=== PATIENT | male | born 1995 | race American Indian/Alaskan Native ===

== ENCOUNTER 2017-05-22 10:04 | Emergency (ER) | payer SELFPAY ==
[2017-05-22 10:41] VITALS: BP 125/62
[2017-05-22 11:13] LABS: Basophils # (Auto) 0.1 K/mm3 (0.0-0.1); Basophils % (Auto) 1.4 % (0.0-1.8); Eosinophils # (Auto) 0.1 K/mm3 (0.0-0.4); Eosinophils % (Auto) 2.1 % (0.0-4.3); Hematocrit 44.5 % (35.5-45.6); Hemoglobin 14.7 gm/dl (11.8-15.2); Lymphocytes % (Auto) 22.3 % (13.4-35.0); Mean Corpuscular HGB Conc 33 % (32-34); Mean Corpuscular Hemoglobin 28 pg (28-32); Mean Corpuscular Volume 83 fl (84-94); Monocytes # (Auto) 0.4 K/mm3 (0.0-0.8); Monocytes % (Auto) 9.9 % (0.0-7.3); Platelet Count 295 K/mm3 (140-440); Red Blood Count 5.35 M/mm3 (3.65-5.03); Red Cell Distribution Width 13.3 % (13.2-15.2)
[2017-05-22 11:22] LABS: Alanine Aminotransferase 12 units/L (7-56); Albumin 4.5 g/dL (3.9-5); BUN/Creatinine Ratio 18; Blood Urea Nitrogen 16 mg/dL (9-20); Calcium 9.4 mg/dL (8.4-10.2); Hemolysis Index 9
--- NOTE | 2017-05-22 13:07 | XRay Report ---
ABDOMINAL SERIES: History: Abdominal pain. Erect chest film shows no acute or significant changes involving the heart or lung aden. There is no evidence of free air beneath the diaphragms. The gas pattern within the abdomen is unremarkable. There is no evidence of bowel dilatation, significant air-fluid levels, or masses. Organ shadows are unremarkable. IMPRESSION: Abdominal series within normal limits.
--- NOTE | 2017-05-22 13:43 | Emergency Department Report ---
ED Abdominal Pain HPI - General Chief Complaint: Abdominal Pain Stated Complaint: ABD PAIN Time Seen by Provider: 05/22/17 12:38 Source: patient Mode of arrival: Ambulatory Limitations: No Limitations - History of Present Illness Initial Comments: This is a 21-year-old male initially screened by Dr. Corea. Patient presents stating that he has not a bowel movement in 2 days. Patient states that he had some tapering yesterday eats regularly. He denies nausea, vomiting, diarrhea, abdominal pain, fever. States he normally have a bowel movement on a daily basis. - Related Data Previous Rx's Medication Instructions Recorded Last Taken Type Docusate Sodium [Colace] 100 mg PO BID PRN #20 capsule 05/22/17 Unknown Rx Ondansetron [Zofran Odt] 4 mg PO Q8H #10 tab.rapdis 05/22/17 Unknown Rx Allergies Allergy/AdvReac Type Severity Reaction Status Date / Time No Known Allergies Allergy Unverified 05/22/17 10:38 ED Review of Systems ROS: Stated complaint: ABD PAIN Other details as noted in HPI Constitutional: denies: chills, fever Eyes: denies: eye pain, eye discharge, vision change ENT: denies: ear pain, throat pain Respiratory: denies: cough, shortness of breath, wheezing Cardiovascular: denies: chest pain, palpitations Endocrine: no symptoms reported Gastrointestinal: denies: abdominal pain, nausea, diarrhea Genitourinary: denies: urgency, dysuria Musculoskeletal: denies: back pain, joint swelling, arthralgia Skin: denies: rash, lesions Neurological: denies: headache, weakness, paresthesias Psychiatric: denies: anxiety, depression Hematological/Lymphatic: denies: easy bleeding, easy bruising ED Past Medical Hx - Past Medical History Previous Medical History?: No - Surgical History Additional Surgical History: ingrown toenail - Social History Smoking Status: Never Smoker Substance Use Type: None - Medications Home Medications: Home Medications Medication Instructions Recorded Confirmed Last Taken Type Docusate Sodium [Colace] 100 mg PO BID PRN #20 capsule 05/22/17 Unknown Rx Ondansetron [Zofran Odt] 4 mg PO Q8H #10 tab.rapdis 05/22/17 Unknown Rx ED Physical Exam - General Limitations: No Limitations General appearance: alert, in no apparent distress - Head Head exam: Present: atraumatic, normocephalic - Eye Eye exam: Present: normal appearance - ENT ENT exam: Present: mucous membranes moist - Neck Neck exam: Present: normal inspection - Respiratory Respiratory exam: Present: normal lung sounds bilaterally. Absent: respiratory distress, wheezes - Cardiovascular Cardiovascular Exam: Present: regular rate, normal rhythm. Absent: systolic murmur, diastolic murmur, rubs, gallop - GI/Abdominal GI/Abdominal exam: Present: soft, normal bowel sounds. Absent: distended, tenderness, guarding, rebound, rigid, mass - Rectal Rectal exam: Present: deferred - Extremities Exam Extremities exam: Present: normal inspection - Back Exam Back exam: Present: normal inspection - Neurological Exam Neurological exam: Present: alert, oriented X3, CN II-XII intact - Psychiatric Psychiatric exam: Present: normal affect, normal mood - Skin Skin exam: Present: warm, dry, intact, normal color. Absent: rash ED Course Vital Signs 05/22/17 10:38 Temperature 98.6 F Pulse Rate 72 Respiratory 16 Rate Blood Pressure 125/62 O2 Sat by Pulse 100 Oximetry ED Medical Decision Making - Lab Data Result diagrams: 05/22/17 10:50 05/22/17 10:50 - Radiology Data Radiology results: report reviewed, image reviewed cc: JOYCE COREA MD Fluoro Time In Minutes: ABDOMINAL SERIES: History: Abdominal pain. Erect chest film shows no acute or significant changes involving the heart or lung aden. There is no evidence of free air beneath the diaphragms. The gas pattern within the abdomen is unremarkable. There is no evidence of bowel dilatation, significant air-fluid levels, or masses. Organ shadows are unremarkable. IMPRESSION: Abdominal series within normal limits. Transcribed By: TTR Dictated By: JESSICA CARRANZA JR, MD Electronically Authenticated By: JESSICA CARRANZA JR, MD Signed Date/Time: 05/22/17 1300 - Medical Decision Making 21-year-old male presents with constipation ED course: CBC, CMP within normal limits Abdominal x-rays ordered. X-rays reported above. Patient is in no acute distress. I discussed with the patient to follow up with primary care physician. Patient is in no distress or pain. Patient is sitting comfortably in bed. Patient states he was not going to go to work yesterday because of the pain patient is requesting work note to go back to work. Discussed with patient and proper diet and high fiber diet to help with bowel movement Critical care attestation.: If time is entered above; I have spent that time in minutes in the direct care of this critically ill patient, excluding procedure time. ED Disposition Clinical Impression: Constipation Qualifiers: Constipation type: other constipation type Qualified Code(s): K59.09 - Other constipation Disposition: - TO HOME OR SELFCARE Is pt being admited?: No Does the pt Need Aspirin: No Condition: Stable Instructions: Gastroenteritis (ED), High Fiber Diet (ED), Constipation (ED) Additional Instructions: A 21-year-old male presents with an episode of gastroenteritis ED cours patient states no nausea vomiting or diarrhea. Patient state Prescriptions: Docusate Sodium [Colace] 100 mg PO BID PRN #20 capsule PRN Reason: Constipation Ondansetron [Zofran Odt] 4 mg PO Q8H #10 tab.rapdis Referrals: PRIMARY CARE, [Primary Care Provider] - 3-5 Days [facility] [Outside] - 3-5 Days [facility] [Outside] - 3-5 Days Forms: Accompanied Note, Work/School Release Form(ED) Time of Disposition: 14:11
== END 2017-05-22 14:53 | disposition home or self-care (01) ==
LOC: ED 10:04
DX: K59.09 Other constipation (principal)
CPT/HCPCS: 36415; 74022; 80053; 85025; 99283

== ENCOUNTER 2017-05-24 10:08 | Emergency (ER) | payer SELFPAY ==
[2017-05-24 10:25] VITALS: BP 109/64
--- NOTE | 2017-05-24 11:15 | Emergency Department Report ---
ED General Adult HPI - General Chief complaint: Medical Clearance Stated complaint: ABNORMAL ABDOMINAL ACTIVITY Time Seen by Provider: 05/24/17 11:12 Source: patient Mode of arrival: Ambulatory Limitations: No Limitations - History of Present Illness Initial comments: This is a 21 y.o. male that presents with feeling of something crawling on him at night for 2 days. Patient reports feeling like something is under skin in stomach, hands, and groin area. He is currently not feeling it right now. He only feel symptoms at night. He live with mother and brother and no one else in the house is feeling this. He tried taking stool softener and ibuprofen but symptoms didn't improve. Denies anxiousness, voices, SI/HI, nausea, vomiting, diarrhea, and rash. -: days(s) (2) Location: abdomen, genitals, upper extremity (hands) Radiation: non-radiation Severity scale (0 -10): 8 Quality: constant, other (itching or crawling sensation) Consistency: intermittent Improves with: none Worsens with: other (at night) Associated Symptoms: denies other symptoms. denies: confusion, chest pain, cough, diaphoresis, fever/chills, headaches, loss of appetite, malaise, nausea/ vomiting, rash, seizure, shortness of breath, syncope, weakness Treatments Prior to Arrival: NSAID, other (stool softener) - Related Data Previous Rx's Medication Instructions Recorded Last Taken Type Docusate Sodium [Colace] 100 mg PO BID PRN #20 capsule 05/22/17 Unknown Rx Ondansetron [Zofran Odt] 4 mg PO Q8H #10 tab.rapdis 05/22/17 Unknown Rx Albendazole (Nf) [Albenza (Nf)] 400 mg PO QWEEK #2 tablet 05/24/17 Unknown Rx Permethrin 5% [Acticin 5% CREAM] 1 applicatio TP ONCE #1 tube 05/24/17 Unknown Rx Allergies Allergy/AdvReac Type Severity Reaction Status Date / Time No Known Allergies Allergy Verified 05/24/17 10:21 ED Review of Systems ROS: Stated complaint: ABNORMAL ABDOMINAL ACTIVITY Other details as noted in HPI Constitutional: denies: chills, fever Respiratory: denies: cough, shortness of breath, wheezing Cardiovascular: denies: chest pain, palpitations Gastrointestinal: denies: abdominal pain, nausea, diarrhea Genitourinary: denies: urgency, dysuria Skin: pruritus (at night on abdomen, groin, and hands). denies: rash, lesions Neurological: denies: headache, weakness, paresthesias Psychiatric: denies: anxiety, depression, auditory hallucinations, visual hallucinations, homicidal thoughts, suicidal thoughts ED Past Medical Hx - Past Medical History Previous Medical History?: No - Surgical History Past Surgical History?: No Additional Surgical History: ingrown toenail - Social History Smoking Status: Never Smoker Substance Use Type: None - Medications Home Medications: Home Medications Medication Instructions Recorded Confirmed Last Taken Type Docusate Sodium [Colace] 100 mg PO BID PRN #20 capsule 05/22/17 Unknown Rx Ondansetron [Zofran Odt] 4 mg PO Q8H #10 tab.rapdis 05/22/17 Unknown Rx Albendazole (Nf) [Albenza (Nf)] 400 mg PO QWEEK #2 tablet 05/24/17 Unknown Rx Permethrin 5% [Acticin 5% CREAM] 1 applicatio TP ONCE #1 tube 05/24/17 Unknown Rx ED Physical Exam - General Limitations: No Limitations General appearance: alert, in no apparent distress - Respiratory Respiratory exam: Present: normal lung sounds bilaterally. Absent: respiratory distress, wheezes, rales, rhonchi, stridor, chest wall tenderness - Cardiovascular Cardiovascular Exam: Present: regular rate, normal rhythm, normal heart sounds. Absent: systolic murmur, diastolic murmur, rubs, gallop - GI/Abdominal GI/Abdominal exam: Present: soft, normal bowel sounds. Absent: distended, tenderness, guarding, rebound, rigid, organomegaly, mass - exam: Absent: scrotal swelling, vertical testicular lie External exam: Present: erythema (bilateral groin area). Absent: swelling, lesions, lacerations, ecchymosis - Psychiatric Psychiatric exam: Present: normal affect, normal mood. Absent: depressed, agitated, anxious, flat affect, manic, homicidal ideation, suicidal ideation - Skin Skin exam: Present: warm, dry, intact, normal color, erythema (1 cm area on bilateral proximal metatarsals 2-5). Absent: rash ED Course Vital Signs 05/24/17 10:21 Temperature 98.4 F Pulse Rate 72 Respiratory 18 Rate Blood Pressure 109/64 O2 Sat by Pulse 99 Oximetry ED Medical Decision Making - Medical Decision Making This is a 21 y.o. male that presents with feeling of something crawling on him at night on stomach, groin, and hands for 1 week. Patient is stable and was examined by me. Denies anxiousness, voices, SI/HI, nausea, vomiting, diarrhea, and rash. He tried taking ibuprofen and stool softener with no improvement of symptoms. Patient does not seem toxic or ill in appearance. No acute signs of distress noted. Currently not feeling itching or symptoms of crawling at this time. Discharge home to treat for scabies and pinworms. Advised to apply tape to rectum at night. Patient agrees to the ED plan of care to treat outpatient. No further questions noted. Discharged home with albenza and permethrin. Follow up with PCP in 24-48 hours. Critical care attestation.: If time is entered above; I have spent that time in minutes in the direct care of this critically ill patient, excluding procedure time. ED Disposition Clinical Impression: Scabies, Enterobiasis Disposition: TO HOME OR SELFCARE Is pt being admited?: No Does the pt Need Aspirin: No Condition: Stable Instructions: Enterobiasis (ED), Scabies (ED) Additional Instructions: Apply permethrin cream from head to soles of feet; leave on for 8 to 14 hours before removing shower or bath. Take albenza pill once this week, then take second pill 2 weeks later. If symptoms are not improving follow up with [facility]. Prescriptions: Albendazole (Nf) [Albenza (Nf)] 400 mg PO QWEEK #2 tablet Permethrin 5% [Acticin 5% CREAM] 1 applicatio TP ONCE #1 tube Referrals: [facility] [Outside] - 3-5 Days [facility] [Outside] - 3-5 Days [facility] [Outside] - 3-5 Days Forms: Work/School Release Form(ED) Time of Disposition: 13:22 Print Language: ICELANDIC
== END 2017-05-24 13:31 | disposition home or self-care (01) ==
LOC: ED 10:08
DX: B86 Scabies (principal); B80 Enterobiasis
CPT/HCPCS: 99282

== ENCOUNTER 2017-06-08 02:44 | Emergency (ER) | payer SELFPAY ==
[2017-06-08 03:40] LABS: Basophils % (Auto) 0.9 % (0.0-1.8); Eosinophils # (Auto) 0.1 K/mm3 (0.0-0.4); Eosinophils % (Auto) 2.5 % (0.0-4.3); Hematocrit 46.7 % (35.5-45.6); Hemoglobin 15.6 gm/dl (11.8-15.2); Lymphocytes # (Auto) 1.2 K/mm3 (1.2-5.4); Lymphocytes % (Auto) 22.7 % (13.4-35.0); Mean Corpuscular HGB Conc 34 % (32-34); Mean Corpuscular Hemoglobin 28 pg (28-32); Mean Corpuscular Volume 82 fl (84-94); Monocytes # (Auto) 0.6 K/mm3 (0.0-0.8); Monocytes % (Auto) 11.9 % (0.0-7.3); Platelet Count 265 K/mm3 (140-440); Red Blood Count 5.67 M/mm3 (3.65-5.03); Red Cell Distribution Width 13.2 % (13.2-15.2)
[2017-06-08 03:57] LABS: BUN/Creatinine Ratio 15; Blood Urea Nitrogen 17 mg/dL (9-20); Calcium 8.9 mg/dL (8.4-10.2); Hemolysis Index 4
--- NOTE | 2017-06-08 04:02 | Cat Scan Report ---
FINAL REPORT EXAM: CT HEAD/BRAIN WO CON HISTORY: change in mental TECHNIQUE: Routine axial imaging was obtained of the brain without IV contrast. FINDINGS: There is no evidence of acute stroke or hemorrhage. The ventricular system is appropriate in size and is symmetric. The basal cisterns appear normal. The visualized sinuses are clear. The mastoid air cells are well pneumatized. The calvarium appears intact. IMPRESSION: No acute intracranial process.
[2017-06-08 05:23] LABS: Bilirubin,Urine NEG (Negative); Blood,Urine NEG (Negative); Color,Urine Yellow (Yellow); Mucus,Urine 3+ /HPF; Protein,Urine <15 mg/dL mg/dL (Negative)
[2017-06-08 05:29] LABS: Amphetamine Screen,Urine PRESUMPTIVE NEGATIVE; Benzodiazepines Screen,Urine PRESUMPTIVE NEGATIVE; Cannabinoid Screen,Urine PRESUMPTIVE NEGATIVE; Cocaine Screen,Urine PRESUMPTIVE NEGATIVE; Methadone Screen,Urine PRESUMPTIVE NEGATIVE; Opiate Screen,Urine PRESUMPTIVE NEGATIVE
[2017-06-08 07:48] VITALS: BP 121/67
--- NOTE | 2017-06-08 10:53 | Emergency Department Report ---
ED Psych HPI - General Chief Complaint: Psych Stated Complaint: "Pressure in the Back of My Head" Time Seen by Provider: 06/08/17 10:35 Source: patient, family Mode of arrival: Ambulatory Limitations: No Limitations - History of Present Illness Initial Comments: Patient and his mother present here for itching in his head and pressure behind his head, per patient. Patient says the itching has been there, but the pressure started 15 minutes prior to arrival. His mother states that something is wrong with him because he has not been acting right and he seems distracted and confused. When mother questioned further, she says that his symptoms of eye twitching, quietness and his complaint of feeling something on and in his head started after he started the prescriptions of Albenza and Permethrin after his 05/24/17 visit to this ER. - Related Data Previous Rx's Medication Instructions Recorded Last Taken Type Docusate Sodium [Colace] 100 mg PO BID PRN #20 capsule 05/22/17 Unknown Rx Ondansetron [Zofran Odt] 4 mg PO Q8H #10 tab.rapdis 05/22/17 Unknown Rx Albendazole (Nf) [Albenza (Nf)] 400 mg PO QWEEK #2 tablet 05/24/17 Unknown Rx Permethrin 5% [Acticin 5% CREAM] 1 applicatio TP ONCE #1 tube 05/24/17 Unknown Rx Allergies Allergy/AdvReac Type Severity Reaction Status Date / Time No Known Allergies Allergy Verified 05/24/17 10:21 ED Review of Systems ROS: Stated complaint: MEDICAL CLEAR. Other details as noted in HPI Comment: All other systems reviewed and negative Constitutional: see HPI Eyes: as per HPI Skin: as per HPI. denies: rash, lesions Neurological: as per HPI Psychiatric: as per HPI ED Past Medical Hx - Past Medical History Previous Medical History?: No - Surgical History Past Surgical History?: Yes Additional Surgical History: ingrown toenail - Family History Family history: other (Schizophrenia affecting two family members.) - Social History Smoking Status: Never Smoker Substance Use Type: None - Medications Home Medications: Home Medications Medication Instructions Recorded Confirmed Last Taken Type Docusate Sodium [Colace] 100 mg PO BID PRN #20 capsule 18 06/08/17 Unknown Rx Ondansetron [Zofran Odt] 4 mg PO Q8H #10 tab.rapdis 05/22/17 06/08/17 Unknown Rx Albendazole (Nf) [Albenza (Nf)] 400 mg PO QWEEK #2 tablet 05/24/17 06/08/17 Unknown Rx Permethrin 5% [Acticin 5% CREAM] 1 applicatio TP ONCE #1 tube 05/24/17 06/08/17 Unknown Rx ED Physical Exam - General Limitations: No Limitations, Altered Mental Status General appearance: alert, in no apparent distress - Head Head exam: Present: atraumatic, normocephalic - Eye Eye exam: Present: normal appearance, PERRL, EOMI Pupils: Present: normal accommodation - ENT ENT exam: Present: mucous membranes moist - Neck Neck exam: Present: normal inspection - Respiratory Respiratory exam: Present: normal lung sounds bilaterally. Absent: respiratory distress - Cardiovascular Cardiovascular Exam: Present: regular rate, normal rhythm. Absent: systolic murmur, diastolic murmur, rubs, gallop - GI/Abdominal GI/Abdominal exam: Present: soft, normal bowel sounds - Rectal Rectal exam: Present: deferred - Extremities Exam Extremities exam: Present: normal inspection - Back Exam Back exam: Present: normal inspection - Neurological Exam Neurological exam: Present: alert, oriented X3 - Psychiatric Psychiatric exam: Present: depressed, anxious, flat affect, other (Repetitive statement "I want to see my CT") - Skin Skin exam: Present: warm, dry, intact, normal color. Absent: rash ED Course Vital Signs 06/08/17 06/08/17 06/08/17 02:49 07:48 08:30 Temperature 98.1 F 98 F Pulse Rate 72 67 Respiratory 18 18 18 Rate Blood Pressure 121/77 Blood Pressure 121/67 [Right] O2 Sat by Pulse 100 100 99 Oximetry ED Medical Decision Making - Lab Data Result diagrams: 06/08/17 03:29 06/08/17 03:29 - Radiology Data Radiology results: report reviewed - Medical Decision Making After another discussion with mother discussing previous visit, lab/radiology results, and family history, mother states that she took patient to [facility] yesterday and a referral was done for outpatient gabriel evaluation for Saturday, June 10, 2017. I instructed mother to watch patient carefully and follow up with Gabriel on Saturday. She is to return with her son if any other symptoms appear and/or worsen. Critical care attestation.: If time is entered above; I have spent that time in minutes in the direct care of this critically ill patient, excluding procedure time. ED Disposition Condition: Stable Referrals: PRIMARY CARE, [Primary Care Provider] - 3-5 Days
== END 2017-06-08 11:41 | disposition home or self-care (01) ==
LOC: ED 02:44
DX: L29.9 Pruritus, unspecified (principal)
CPT/HCPCS: 36415; 70450; 80048; 80307; 81001; 85025; 99284; G0480; 80320